=== PATIENT | female | born 1975 | race Caucasian/White ===

== ENCOUNTER 2021-05-01 06:04 | Inpatient (IN) | payer OTHER ==
[~2021-05-01] VITALS: Ht 172.7 cm; Wt 73.2 kg
[~2021-05-01 06:04] MED LIST: MULVITMINE PO; Mirena1 EACH VG
[2021-05-01] MEDS ORDERED: PROBIOTIC1 EA13 PO (06:32)
--- NOTE | 2021-05-01 09:37 | NUR ---
ARRIVED INTO PACU RECIEVED REPORTS FROM ACETYLENE CYLINDER PACKING MIXER AND ANNESTHSIOLOGIST. VSS GARCIA CATHETER IN PLACE
--- NOTE | 2021-05-01 10:46 | NUR ---
REPORT RECIEVED FROM PACU STATING THAT THEY ARE UNABLE TO GET PTS PAIN UNDER CONTROL. PT ARRIVED TO THE FLOOR AT APPROX 1030. ABDOMINAL INCISION COVERED WITH GAUZE AND TAPE, 3X SCANT RED BLOOD OUTLINED AT THAT TIME. PT A/OX4 AND REPORTS 10/10 PAIN. RECREATIONAL PROGRAMS DIRECTOR PUMP STARTED AND PT EDUCATED ON HOW TO USE. KPAD OFFERED BUT PT DENIED AT THIS TIME. VITALS TAKEN, STABLE AT THIS TIME. WILL CONTINUE TO MONITOR.
--- NOTE | 2021-05-01 12:37 | NUR ---
CALL DR AT APPROX 1205 TO LET HER KNOW THAT THE PATIENT HAD SATURATED HER DINA PAD AND VEE IN BLOOD. VITALS TAKEN AT THAT TIME. CONSULTED WITH CONTRACTS REPRESENTATIVE. PT A/OX4. PROVIDER REQUESTED VITALS TO BE TAKEN FREQUENTLY. BP REMAINING IN THE 90'S, PULSE 50-60 RANGE. 100% ON ROOM AIR. PROVIDER PLANS TO COME BY AND SEE PATIENT. FRESH DINA PAD AND LINENS CHANGED. WILL MONITOR FOR SIGNS OF INCREASED BLEEDING. EDUCATED PT ON SIGNS OF BLEEDING AND THE NEED TO CALL IF SHE FEELS SIGNS OF BLEEDING SUCH DIZZINESS OR FOGGYNESS. CALL LIGHT IS IN REACH OF PATIENT.
[2021-05-01 12:43] LABS: Hematocrit 41.3 % (33.0-51.0); Hemoglobin 13.8 g/dL (11.5-16.0)
[2021-05-02 04:48] LABS: BASOPHILS ABSOLUTE AUTO 0.01 K/mm3 (0.00-0.23); BASOPHILS PERCENT AUTO 0 % (0-2); EOSINOPHILS ABSOLUTE AUTO 0.02 K/mm3 (0.00-0.68); EOSINOPHILS PERCENT AUTO 0 % (0-6); Hematocrit 34.2 % (33.0-51.0); Hemoglobin 11.7 g/dL (11.5-16.0); IMMATURE GRAN ABSOLUTE AUTO 0.03 K/mm3 (0.00-0.10); IMMATURE GRAN PERCENT AUTO 0 % (0-1); LYMPHOCYTES ABSOLUTE AUTO 1.62 K/mm3 (0.84-5.20); LYMPHOCYTES PERCENT AUTO 16 % (21-46); MONOCYTES ABSOLUTE AUTO 1.04 K/mm3 (0.16-1.47); MONOCYTES PERCENT AUTO 10 % (4-13); Mean Corpuscular HGB 30.1 pg (26.0-34.0); Mean Corpuscular HGB Conc 34.2 g/dL (31.5-36.5); Mean Corpuscular Volume 88 fL (80-100); Mean Platelet Volume 10.2 fL (9.1-12.4); NEUTROPHILS ABSOLUTE AUTO 7.44 K/mm3 (1.96-9.15); NEUTROPHILS PERCENT AUTO 73 % (41-73); Platelet Count 217 K/mm3 (150-400); RDW Coefficient Variation 11.9 % (11.7-14.2); RDW Standard Deviation 38.3 fL (35.1-46.3); Red Blood Cell Count 3.89 M/mm3 (3.80-5.20); White Blood Cell Count 10.16 K/mm3 (4.00-11.30)
--- NOTE | 2021-05-02 12:45 | NUR ---
RAILWAY PATROL OFFICER PT REPORTS THAT THE RAILWAY PATROL OFFICER IS POSSIBLY MAKING HER NAUSEOUS. TURNED OFF RAILWAY PATROL OFFICER AT THIS TIME TO SEE IF THAT IS THE ISSUE. PT HAS ORAL PAIN MEDICATION AVAILABLE IF NEEDED. WILL ADDRESS ISSUE DURING DOCTOR ROUNDING.
--- NOTE | 2021-05-02 17:52 | NUR ---
SHIFT SUMMARY PT POD #1 FOR TOTAL ABD HYSTER. AT THE BEGINNING OF THE SHIFT THE PT WAS ON A CONTINUOUS EXPEDITER SERVICE ORDER AND ORAL PAIN MEDICATION WITH REPORTS THAT PAIN WAS VERY HARD TO MANAGE YESTERDAY. MINIMAL REPORTS OF PAIN THIS SHIFT BUT THE PATIENT DID START TO EXPERIENCE NAUSEA AND DIZZINESS. STOPPED THE CONTINUOUS EXPEDITER SERVICE ORDER AND THE PATIENT'S NAUSEA WENT AWAY. CURRENTLY TAKING ORAL PAIN MEDICATIONS AND STILL HAS FENTANYL EXPEDITER SERVICE ORDER. MINIMAL BLEEDING THIS SHIFT. PT EXPERIENCING MORE PRESSURE THAN PAIN THIS SHIFT IN HER ABD AREA. VSS. WILL REPORT TO YENNIFER RN.
--- NOTE | 2021-05-03 06:47 | NUR ---
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
--- NOTE | 2021-05-03 12:18 | NUR ---
PT AMBULATED TO BATHROOM AT THIS TIME AND MODERATE SIZED BLOOD CLOT NOTED WITH VOID. PT DENIES DIZZINESS, WILL CTM.
[2021-05-03] MEDS ORDERED: IBU800 M1 PO (15:32)
[2021-05-03] MEDS ORDERED: Percocet 5-3251 EACH PO (15:32)
--- NOTE | 2021-05-03 16:24 | NUR ---
DISCHARGE: DR. CRAIG NOTIFIED OF BLOOD CLOT WITH ROUNDING, NO NEW ORDERS. DC PACKET PRINTED AND PT EDUCATED. IV DC'D WNL. PT GIVEN SCRIPT, PER DR. CRAIG OK TO RESUME HOME MEDS. PT LEFT UNIT AT ABOUT 1610 VIA WHEELCHAIR WITH
== END 2021-05-03 16:10 | disposition home or self-care (01) | DRG 743 ==
LOC: SURS 06:04 → PRE IP 07:30 → SURS 10:46
PROVIDERS: ADMIT Obstetrics & Gynecology
PROC: 0UT90ZZ Resection of Uterus, Open Approach (ICD-10-PCS; principal; 2021-05-01 07:30)
DX: D25.9 Leiomyoma of uterus, unspecified (principal); Z20.822 Contact with and (suspected) exposure to COVID-19; K21.9 Gastro-esophageal reflux disease without esophagitis; N92.1 Excessive and frequent menstruation with irregular cycle; Z90.89 Acquired absence of other organs; Z98.890 Other specified postprocedural states; Z90.79 Acquired absence of other genital organ(s); Z87.891 Personal history of nicotine dependence; Z86.73 Personal history of transient ischemic attack (TIA), and cerebral infarction without residual deficits
CPT/HCPCS: 36415; 85014; 85018; 85025; 88307; A9270; J0690; J1100; J1885; J2250; J2405; J2704; J3010; J7120

== ENCOUNTER → 2021-05-13 | Outpatient (CLI) | payer OTHER ==
[~2021-05-13] MED LIST changes: +IBU800 M1 PO; +PROBIOTIC1 EA13 PO; +Percocet 5-3251 EACH PO
[2021-05-13 19:09] LABS: BASOPHILS ABSOLUTE AUTO 0.04 K/mm3 (0.00-0.23); BASOPHILS PERCENT AUTO 0 % (0-2); EOSINOPHILS ABSOLUTE AUTO 0.19 K/mm3 (0.00-0.68); EOSINOPHILS PERCENT AUTO 2 % (0-6); Hematocrit 36.1 % (33.0-51.0); IMMATURE GRAN ABSOLUTE AUTO 0.02 K/mm3 (0.00-0.10); IMMATURE GRAN PERCENT AUTO 0 % (0-1); LYMPHOCYTES ABSOLUTE AUTO 1.35 K/mm3 (0.84-5.20); LYMPHOCYTES PERCENT AUTO 15 % (21-46); MONOCYTES ABSOLUTE AUTO 0.37 K/mm3 (0.16-1.47); MONOCYTES PERCENT AUTO 4 % (4-13); Mean Corpuscular HGB 29.6 pg (26.0-34.0); Mean Corpuscular HGB Conc 33.2 g/dL (31.5-36.5); Mean Corpuscular Volume 89 fL (80-100); Mean Platelet Volume 10.5 fL (9.1-12.4); NEUTROPHILS ABSOLUTE AUTO 7.25 K/mm3 (1.96-9.15); NEUTROPHILS PERCENT AUTO 79 % (41-73); Platelet Count 295 K/mm3 (150-400); RDW Coefficient Variation 11.4 % (11.7-14.2); RDW Standard Deviation 37.1 fL (35.1-46.3); Red Blood Cell Count 4.06 M/mm3 (3.80-5.20); White Blood Cell Count 9.22 K/mm3 (4.00-11.30)
== END | disposition home or self-care (01) ==
LOC: LAB 18:01 → LAB SHORT 18:01
PROVIDERS: Obstetrics & Gynecology
DX: N99.820 Postprocedural hemorrhage of a genitourinary system organ or structure following a genitourinary system procedure (principal)
CPT/HCPCS: 85025

== ENCOUNTER 2021-05-16 04:59 | Observation (INO) | payer OTHER ==
--- NOTE | 2021-05-16 05:58 | NUR ---
Pt arrived on the unit just after 0500. Was seen by me and quick assessment performed along with a brief conversation. Meanwhile her doctor arrived in the room, spoke with her and wanted to take her to the operating room right away. The doctor would not care for the nursing admission at the time as she did not want to delay surgery longer because the pt was actively bleeding. Pt is alert, awake, and oriented, she is pleasant, conversant and was able to express needs. Her was present with her during that time. I had the time and was able to insert an 20G IV in her left antecubital in advance for her surgeical procedure. She tolerated the IV insertion process well. She was not in distress, was transported to the OR at around 0540.
--- NOTE | 2021-05-16 08:39 | NUR ---
POST OP: PT RETURNES TO ROOM 208 POST OP. VSS. PT HAS NO BLEEDING, PAD IN PLACE. PT HAS HEALING TRANSVERSE INCISION R/T PREVIOUS HYSTER. LAP SITES X2 WITH WOUND GLUE, NO DRAINAGE. PT TAKING ICE CHIPS, MAY ADVANCE TOLERATED. PT GARCIA DC'D POST PROCEDURE, NO VOID YET. IV INFUSING PER ORDERS. SIG OTHER AT BEDSIDE, ATTENTIVE. WILL CONT TO MONITOR AND TREAT.
[2021-05-16 09:23] LABS: BASOPHILS ABSOLUTE AUTO 0.04 K/mm3 (0.00-0.23); BASOPHILS PERCENT AUTO 0 % (0-2); EOSINOPHILS ABSOLUTE AUTO 0.01 K/mm3 (0.00-0.68); EOSINOPHILS PERCENT AUTO 0 % (0-6); Hematocrit 25.2 % (33.0-51.0); Hemoglobin 8.6 g/dL (11.5-16.0); IMMATURE GRAN ABSOLUTE AUTO 0.04 K/mm3 (0.00-0.10); IMMATURE GRAN PERCENT AUTO 0 % (0-1); LYMPHOCYTES ABSOLUTE AUTO 0.75 K/mm3 (0.84-5.20); LYMPHOCYTES PERCENT AUTO 7 % (21-46); MONOCYTES PERCENT AUTO 1 % (4-13); Mean Corpuscular HGB 30.2 pg (26.0-34.0); Mean Corpuscular HGB Conc 34.1 g/dL (31.5-36.5); Mean Corpuscular Volume 88 fL (80-100); Mean Platelet Volume 9.6 fL (9.1-12.4); NEUTROPHILS ABSOLUTE AUTO 9.77 K/mm3 (1.96-9.15); NEUTROPHILS PERCENT AUTO 91 % (41-73); Platelet Count 234 K/mm3 (150-400); RDW Coefficient Variation 11.4 % (11.7-14.2); RDW Standard Deviation 36.8 fL (35.1-46.3); Red Blood Cell Count 2.85 M/mm3 (3.80-5.20); White Blood Cell Count 10.71 K/mm3 (4.00-11.30)
--- NOTE | 2021-05-16 12:55 | NUR ---
LABS: PT POSSIBLE DC TO HOME TODAY. VSS. PT HAS HAD MIN SPOTTING ON PAD. PT MEMO SMALL AMTS PO INTAKE. NO NAUSEA. REPEAT CBC THIS AFTERNOON AND WILL NOTIFY MD OF RESULTS.
[2021-05-16 13:04] LABS: BASOPHILS ABSOLUTE AUTO 0.02 K/mm3 (0.00-0.23); BASOPHILS PERCENT AUTO 0 % (0-2); EOSINOPHILS PERCENT AUTO 0 % (0-6); Hematocrit 25.9 % (33.0-51.0); Hemoglobin 8.8 g/dL (11.5-16.0); IMMATURE GRAN ABSOLUTE AUTO 0.06 K/mm3 (0.00-0.10); IMMATURE GRAN PERCENT AUTO 1 % (0-1); LYMPHOCYTES ABSOLUTE AUTO 0.57 K/mm3 (0.84-5.20); LYMPHOCYTES PERCENT AUTO 5 % (21-46); MONOCYTES ABSOLUTE AUTO 0.36 K/mm3 (0.16-1.47); MONOCYTES PERCENT AUTO 3 % (4-13); Mean Corpuscular HGB 29.7 pg (26.0-34.0); Mean Corpuscular Volume 88 fL (80-100); Mean Platelet Volume 10.1 fL (9.1-12.4); NEUTROPHILS ABSOLUTE AUTO 11.36 K/mm3 (1.96-9.15); NEUTROPHILS PERCENT AUTO 92 % (41-73); Platelet Count 271 K/mm3 (150-400); RDW Coefficient Variation 11.5 % (11.7-14.2); RDW Standard Deviation 36.8 fL (35.1-46.3); Red Blood Cell Count 2.96 M/mm3 (3.80-5.20); White Blood Cell Count 12.37 K/mm3 (4.00-11.30)
--- NOTE | 2021-05-16 15:10 | NUR ---
discharge: PT DC TO HOME AT THIS TIME WITH SIGNIFICANT OTHER. IV DC'D WNL. PT VERBALIZED UNDERSTANDING OF INSTRUCTIONS, MEDICATIONS, FOLLOW UP AND PROBLEMS TO REPORT. PT LEFT VIA WHEELCHAIR TO CAR WITH BELONGINGS.
--- NOTE | 2021-05-18 15:42 | NUR ---
05/18/21 1542 Whitley Cali VERIFICATIONS: EDIT CHART.
== END 2021-05-16 15:10 | disposition home or self-care (01) ==
LOC: SURS 04:59
PROVIDERS: ADMIT Obstetrics & Gynecology
PROC: 0UC04ZZ Extirpation of Matter from Right Ovary, Percutaneous Endoscopic Approach (ICD-10-PCS; principal; 2021-05-16 07:00)
DX: N99.820 Postprocedural hemorrhage of a genitourinary system organ or structure following a genitourinary system procedure (principal); Y83.9 Surgical procedure, unspecified as the cause of abnormal reaction of the patient, or of later complication, without mention of misadventure at the time of the procedure; N83.201 Unspecified ovarian cyst, right side; N73.6 Female pelvic peritoneal adhesions (postinfective); Z87.891 Personal history of nicotine dependence
CPT/HCPCS: 36415; 85025; 86850; 86900; 86901; 86923; A9270; J0690; J1100; J2250; J2370; J2405; J2704; J3010